=== PATIENT | female | born 1990 | race Caucasian/White ===

== ENCOUNTER 2020-08-26 21:00 | Observation (INO) | payer MEDICAID ==
[~2020-08-26] VITALS: Ht 157.5 cm; Wt 64.4 kg
[2020-08-26 22:19] VITALS: BP 129/62
== END 2020-08-26 22:56 | disposition home or self-care (01) ==
LOC: MLD 21:00
PROVIDERS: ADMIT Obstetrics & Gynecology; ATTEND Obstetrics & Gynecology
DX: O26.892 Other specified pregnancy related conditions, second trimester (principal); R07.89 Other chest pain; R06.02 Shortness of breath; R10.2 Pelvic and perineal pain; Z3A.26 26 weeks gestation of pregnancy
CPT/HCPCS: 81000; G0378

== ENCOUNTER 2020-08-26 23:01 | Emergency (ER) | payer MEDICAID ==
[~2020-08-26] VITALS: Ht 154.9 cm; Wt 66.2 kg
--- NOTE | 2020-08-26 23:05 | NUR ---
PT TAKEN TO BED #8 VIA W/C
[2020-08-26 23:09] VITALS: BP 113/67
--- NOTE | 2020-08-26 23:40 | NUR ---
30 YR OLD FEMALE PRESENTED TO THE ER WITH CC OF CHEST PAIN AND SOB. PT IS AOX4. PT STATES 6/10 SORE CHEST PAIN THE STARTS RIGHT SIDE OF CHEST AND RADIATE TO MIDDLE OF CHEST THAT STARTED 6A THIS MORNING. PT STATES SOB SINCE 6A THIS MORNING. LUNG SOUNDS ARE CLEAR BILATERALLY WITH EQUAL RISE AND FALL UPON RESPIRATION. PT STATES BEING POSITIVE FOR COVID LAST JUNE BUT IS UNSURE ABOUT CURRENT STATUS. PT STATES CURRENTLY 6 MONTHS . PT DENIES OTHER MEDICAL COMPLAINTS. BED LOCKED IN LOWEST POSITION WITH 1 SIDE RAIL UP. WILL CONTINUE TO MONITOR. HISTORY- GERD ALLERGIES- SHRIMP
--- NOTE | 2020-08-26 23:57 | NUR ---
X-RAY AT BEDSIDE.
[2020-08-27 00:47] LABS: BASOPHILS % (AUTO) 0.2 % (0.0-2.0); EOSINOPHILS # (AUTO) 0.1 K/uL (0-0.4); EOSINOPHILS % (AUTO) 1.1 % (0.0-4.0); HEMOGLOBIN 10.8 g/dL (12.0-16.0); LYMPHOCYTES # (AUTO) 2.4 K/uL (2.5-16.5); LYMPHOCYTES % (AUTO) 19.7 % (20.5-51.1); MEAN CORPUSCULAR HEMOGLOBIN 31 pg (27-31); MEAN CORPUSCULAR HGB CONC 35 g/dL (33-37); MEAN CORPUSCULAR VOLUME 90.4 fL (80-94); MONOCYTES % (AUTO) 7.9 % (1.7-9.3); NEUTROPHILS # (AUTO) 8.7 K/uL (1.8-7.7); NEUTROPHILS % (AUTO) 71.1 % (42.2-75.2); PLATELET COUNT (AUTO) 216 K/uL (140-450); RED BLOOD CELL COUNT(AUTO) 3.43 MIL/uL (4.20-5.40); RED CELL DISTRIBUTION WIDTH 12.6 % (11.6-13.7); WHITE BLOOD COUNT (AUTO) 12.3 K/uL (4.8-10.8)
[2020-08-27 00:56] LABS: ALBUMIN 2.9 g/dL (3.4-5.0); ANION GAP 12.3 (8-16); CARBON DIOXIDE 24.3 mmol/L (21-32); CREATININE 0.5 mg/dL (0.6-1.3); POTASSIUM 3.6 mmol/L (3.5-5.1); TOTAL BILIRUBIN 0.4 mg/dL (0.0-1.0)
--- NOTE | 2020-08-27 01:17 | NUR ---
ULTRASOUND AT BEDSIDE.
--- NOTE | 2020-08-27 01:59 | NUR ---
PT FOUND AWAKE IN SEMI-PINEDA'S POSITION IN BED. PT STATES NO PAIN AND NO DIFFICULTY BREATHING. PT DENIES DISTRESS. BED LOCKED IN LOWEST POSITION WITH 1 SIDE RAIL UP.
[2020-08-27 02:10] VITALS: BP 113/56
--- NOTE | 2020-08-27 02:10 | NUR ---
Patient discharged with v/s stable. Written and verbal after care instructions given and explained. Patient verbalized understanding. Ambulatory with steady gait. All questions addressed prior to discharge. Advised to follow up with PMD.
== END 2020-08-27 02:08 | disposition home or self-care (01) ==
LOC: MED 23:01
DX: F41.9 Anxiety disorder, unspecified (principal); R06.02 Shortness of breath; K21.9 Gastro-esophageal reflux disease without esophagitis; Z91.013 Allergy to seafood
CPT/HCPCS: 36415; 36600; 71045; 80053; 82803; 85025; 85379; 93005; 93970; 99285